=== PATIENT | female | born 1990 | race Caucasian/White ===

== ENCOUNTER → 2017-06-26 | Outpatient (CLI) | payer BC ==
[2017-06-26 10:23] LABS: ALT 10 U/L (9-52); AST 13 U/L (14-36); Albumin 3.9 g/dL (3.5-5.0); Alkaline Phosphatase 88 U/L (38-126); Anion Gap 12 mmol/L; Blood Urea Nitrogen 9 mg/dL (7-17); Calcium 9.1 mg/dL (8.4-10.2); Carbon Dioxide 23 mmol/L (22-30); Chloride 108 mmol/L (98-107); Cholesterol 207 mg/dL (<200); Glucose 78 mg/dL (74-99); HDL Cholesterol 61 mg/dL (40-60); LDL Cholesterol,Calculated 113 mg/dL (0-99); Potassium 3.6 mmol/L (3.5-5.1); Sodium 143 mmol/L (137-145); Total Bilirubin 0.2 mg/dL (0.2-1.3); Total Protein 7.4 g/dL (6.3-8.2); Triglycerides 164 mg/dL (<150)
[2017-06-26 19:24] LABS: Hemoglobin A1C 8.7 % (4.0-6.0)
== END | disposition home or self-care (01) ==
LOC: LABWHC1 08:53
PROVIDERS: ATTEND Physician Assistant
DX: E10.65 Type 1 diabetes mellitus with hyperglycemia (principal); E27.40 Unspecified adrenocortical insufficiency
CPT/HCPCS: 36415; 80053; 80061; 82024; 82043; 82088; 82533; 82570; 83036; 84244; 84443

== ENCOUNTER → 2018-03-05 | Outpatient (CLI) | payer BC ==
[2018-03-05 10:57] LABS: ALT 36 U/L (9-52); AST 16 U/L (14-36); Alkaline Phosphatase 110 U/L (38-126); Anion Gap 7 mmol/L; Blood Urea Nitrogen 12 mg/dL (7-17); Carbon Dioxide 24 mmol/L (22-30); Chloride 108 mmol/L (98-107); Cholesterol 169 mg/dL (<200); Glucose 226 mg/dL (74-99); HDL Cholesterol 52 mg/dL (40-60); LDL Cholesterol,Calculated 103 mg/dL (0-99); Potassium 4.6 mmol/L (3.5-5.1); Sodium 139 mmol/L (137-145); Total Bilirubin 0.4 mg/dL (0.2-1.3); Total Protein 7.2 g/dL (6.3-8.2); Triglycerides 68 mg/dL (<150)
== END | disposition home or self-care (01) ==
LOC: LABWHC1 08:49
PROVIDERS: ATTEND Internal Medicine
DX: E10.65 Type 1 diabetes mellitus with hyperglycemia (principal); E27.1 Primary adrenocortical insufficiency
CPT/HCPCS: 36415; 80053; 80061; 82024; 82043; 82088; 82533; 82570; 84244; 84443

== ENCOUNTER → 2019-06-22 | Outpatient (CLI) | payer BC ==
[2019-06-22 16:42] LABS: HCT 42.9 % (34.0-46.0); HGB 13.8 gm/dL (11.4-16.0); MCH 30.4 pg (25.0-35.0); MCHC 32.1 g/dL (31.0-37.0); MCV 94.5 fL (80.0-100.0); Platelet Count 287 k/uL (150-450); RBC 4.53 m/uL (3.80-5.40); RDW 12.5 % (11.5-15.5); WBC 6.6 k/uL (3.8-10.6)
[2019-06-22 23:57] LABS: AST 10 U/L (13-35); African American GFR (CKD) 101.6 (60.0-200.0); Albumin/Globulin Ratio 1.91 (1.60-3.17); Alkaline Phosphatase 72 U/L (41-126); Calcium 9.1 mg/dL (8.7-10.3); Carbon Dioxide 26.9 mmol/L (21.6-31.8); Chloride 103 mmol/L (96-109); Ferritin 18.1 ng/mL (10.0-291.0); Globulin 2.2 g/dL (1.6-3.3); Glucose 392 mg/dL (70-110); Iron 49 ug/dL (50-170); Non-African American GFR(CKD) 87.6 (60.0-200.0); Sodium 138 mmol/L (135-145); Total Bilirubin 0.3 mg/dL (0.3-1.2); Total Iron Binding Capacity 374 ug/dL (228-460); Total Protein 6.4 g/dL (6.2-8.2)
[2019-06-23 00:13] LABS: ALT <8 U/L (8-44)
== END | disposition home or self-care (01) ==
LOC: LABWHC1 16:13
PROVIDERS: ATTEND Family Medicine
DX: D50.9 Iron deficiency anemia, unspecified (principal); R53.83 Other fatigue
CPT/HCPCS: 36415; 80053; 82607; 82728; 82747; 83540; 83550; 84439; 84443; 84481; 85027

== ENCOUNTER 2020-03-25 10:06 | Emergency (ER) | payer BC, OTHER ==
[2020-03-25 10:15] VITALS: RESP 18
[2020-03-25] MEDS ORDERED: ACET/COD 300 MG/30 MG STARTER PACK 6 TAB BTL PO STA (10:52)
[2020-03-25] MEDS ORDERED: Acetaminophen-Codeine 300-30mg TAB PO STA (10:52)
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
--- NOTE | 2020-03-25 11:20 | XR ---
EXAMINATION TYPE: XR shoulder complete LT DATE OF EXAM: 03/25/2020 CLINICAL HISTORY: Pain TECHNIQUE: Three views of the left shoulder are obtained. COMPARISON: None. FINDINGS: There is no acute fracture/dislocation evident in the left shoulder. The acromioclavicula r and glenohumeral joint spaces appear within normal limits. The visualized ribs are intact and unre markable. IMPRESSION: There is no acute fracture or dislocation in the left shoulder.
--- NOTE | 2020-03-25 11:22 | XR ---
Cervical spine HISTORY: Trauma and pain 5 views of the cervical spine Cervical vertebral bodies show preserved height and bone mineralization. Minimal retrolisthesis grade 1 C2-3. Disc spaces are normal, and prevertebral soft tissues are markable for some air density with in the prevertebral soft tissues superimposed over the C7-T1 level, no evident thickening of the prev ertebral soft tissues. No neural foraminal encroachment. There is some facet arthropathy changes pres ent. IMPRESSION: No acute fracture or subluxation. Air density may be due to superimposed air within the e sophagus, less likely lung apex herniation.
--- NOTE | 2020-03-25 11:23 | XR ---
Left scapula HISTORY: Trauma and pain 2 views of the left scapula Bone mineralization, joint spaces and alignment are maintained. Left lung apex as visualized is shelbi l. IMPRESSION: No fracture or dislocation.
--- NOTE | 2020-03-25 12:50 | CT ---
EXAMINATION TYPE: CT soft tissue neck wo con DATE OF EXAM: 03/25/2020 HISTORY: Concern for free air, apical herniation. Shoulder pain COMPARISON: Left shoulder and left scapula radiograph 03/25/2020 CT DLP: 200.7 mGycm. Automated Exposure Control for Dose Reduction was Utilized. TECHNIQUE: CT scan of the neck is without IV contrast. Coronal and sagittal reformatted images are r eviewed. FINDINGS: Airway: No gross abnormality seen. Parotid/submandibular glands: No gross abnormality seen. Osseous Structures: All acute osseous abnormality. Other: The lung apices are normal bilaterally, with no pneumothorax seen. No cervical lymphadenopathy . Globes are grossly symmetric. IMPRESSION: Normal CT neck.
[2020-03-25 13:19] VITALS: BP 107/62; PULSE 89; TEMP 97.9
== END 2020-03-25 13:35 | disposition home or self-care (01) ==
LOC: EC 10:06
DX: S43.402A Unspecified sprain of left shoulder joint, initial encounter (principal); E11.9 Type 2 diabetes mellitus without complications; Z79.4 Long term (current) use of insulin; Z88.6 Allergy status to analgesic agent; Z88.0 Allergy status to penicillin; Y04.0XXA Assault by unarmed brawl or fight, initial encounter
CPT/HCPCS: 70490; 72050; 99284